=== PATIENT | male | born 1945 | race Caucasian/White ===

== ENCOUNTER → 2024-04-18 | Outpatient (CLI) | payer MEDICARE, BC, SELFPAY ==
[2024-04-18 08:59] LABS: Anion Gap 7 (7-16); BUN/Creatinine Ratio 22 Ratio (12-20); Blood Urea Nitrogen 24 mg/dL (9-23); Calcium 9.6 mg/dL (8.3-10.6); Carbon Dioxide 26.5 mMol/L (20.0-31.0); Chloride 103 mMol/L (98-107); Creatinine (Component) 1.1 mg/dL (0.6-1.3); Glucose 114 mg/dL (74-106); Osmolality,Calculated 276 (275-295); Potassium 4.3 mMol/L (3.4-5.1); Sodium 136 mMol/L (136-145); eGFR > 60 See Note
== END | disposition home or self-care (01) ==
LOC: COPL 07:23
PROVIDERS: PCP Family Medicine; Referring Provider Nurse Practitioner Family; Visit Provider Nurse Practitioner Family
DX: I10 Essential (primary) hypertension (principal)
CPT/HCPCS: 36415; 80048

== ENCOUNTER → 2024-06-20 | Outpatient (CLI) | payer MEDICARE, BC, SELFPAY ==
--- NOTE | 2024-06-20 | XR_ITS ---
Examination: Bilateral knees, standing AP single view Technique: Standing AP bilateral knees, standing single view Exam date and time: June 20, 2024 0745 hrs. Indications: Bilateral knee pain years, right knee surgery 1984 Findings: Significant osteopenia Advanced osteoarthritis medial lateral joint spaces right and left knee Especially severe narrowing, [id number] lateral joint spaces No fracture Impression: Severe bilateral osteoarthritis
== END | disposition home or self-care (01) ==
LOC: CDIM 07:35
PROVIDERS: PCP Family Medicine; Referring Provider Nurse Practitioner Family; Visit Provider Nurse Practitioner Family
DX: M17.0 Bilateral primary osteoarthritis of knee (principal)
CPT/HCPCS: 73565

== ENCOUNTER 2024-08-05 13:11 | Outpatient (AMB) | payer MEDICARE, BC, SELFPAY ==
--- NOTE | 2024-08-05 13:41 | PD.ORTHCLVIS ---
Vital signs 08/05/24 13:42 Height 1.78 m Height Method Stated Weight 72.291 kg Weight Measurement Method Standing Scale BMI 22.8 BP 118/74 Blood Pressure Source Automatic Cuff Blood Pressure Location Left Upper Arm Position Sitting Respiration 18 Pulse 67 Pulse Source Monitor Temp 98.0 F Temp Source Temporal Artery Scan Pulse Oximetry (%) 95 Oxygen Delivery Method Room Air Med/Allergies Allergies & Medications Allergies morphine Allergy (Intermediate, Verified 08/05/24 13:43) Hives doxycycline Allergy (Verified 08/05/24 13:43) Medication Reconciliation lisinopril 10 mg tablet 10 mg PO QDAY 12/09/23 [History Confirmed 08/05/24] prednisone 5 mg tablet 7.5 mg PO QDAY 12/09/23 [History Confirmed 08/05/24] ibuprofen 200 mg tablet 200 mg PO Q6H PRN 12/24/23 [History Confirmed 08/05/24] leflunomide 20 mg tablet 20 mg PO QDAY 08/05/24 [History Confirmed 08/05/24] Exam Exam Patient is in no acute distress and is cooperative with the examination today. Breathing is nonlabored. In no respiratory distress. Bilateral extremities were evaluated and demonstrates sensation intact to light touch. Palpable pedal pulses are present. No significant edema is present. Bilateral hips were examined. The patient has no pain with log roll of the hips. Internal rotation to 30 degrees and external rotation to 30 degrees is painless. Negative FADIR. The left knee was examined. The left knee is in varus alignment. Range of motion from 0-115 degrees. Knee is stable to varus and valgus as well as AP translation with <5mm. Patient has a negative McMurrays. There is no pain with patellofemoral compression and no crepitus noted. The knee is tender to palpation medially and laterally The right knee was also examined. The right knee is in varus alignment. Range of motion from 0-120 degrees. Knee is stable to varus and valgus as well as AP translation with <5mm. Patient has a negative McMurrays. There is no pain with patellofemoral compression and no crepitus noted. The knee is tender to palpation medially and laterally. X-rays demonstrate significant joint space narrowing bilaterally. There is complete obliteration of the medial and lateral joint space. There is extensive osteophyte Assessment and Plan Problem List (1) Ankylosing spondylitis: Status: Acute (2) Degenerative arthritis of knee, bilateral: Status: Acute Plan: Patient is a pleasant 78-year-old male with bilateral knee arthritis and closing spondylitis. He is exhausted conservative treatment. We discussed total knee replacement is a reasonable option. He does have a prior incision on the right that is clean dry and intact. This was done over 30 years ago. It is a long medial incision and I will try to reuse this if possible. Given his failure of conservative treatment. We will plan for a right total knee replacement. We will need stems on backup for his ankylosing spondylitis. For the left side, he would like a cortisone injection today Recommend knee cortisone injection as patient would like to proceed with conservative treatment at this time. The risks and benefits of the procedure were reviewed with the patient and patient gave verbal consent to continue with the procedure. Procedure: performed by Dr. Vega Using sterile technique the left knee was thoroughly prepped with alcohol, and approximately 1 cc of Kenalog 40 mg/mL and 4 cc of 1% lidocaine was injected without resistance into the medial tibial femoral joint space. The patient tolerated the procedure. The nature and purpose of the right total knee replacement, alternative method(s) of treatment, the material risks involved, and the possibility of complications were fully explained to the patient. The patient does NOT have any of the following contraindications to TKA: - Active infection of the knee joint, OR - Active systemic bacteremia, OR - Active skin infection or open wound at surgical site, OR - Neuropathic arthritis, OR - Severe, rapidly progressive neurological disease, OR - Severe medical condition that makes risks of surgery outweigh the potential benefit The patient was told the most common risks and complications associated with a total knee replacement include, but are not limited to: blood clots in the leg, fatal pulmonary embolism, dislocation of the prosthesis, intraoperative and postoperative fractures of the femur or tibia, infection, failure of the prosthesis or grafting materials, complications from anesthesia, reactions to blood transfusions, postoperative leg length inequality, instability of the knee replacement, nerve damage or injury, vascular injury, delayed wound healing, infection, other injury or even . In addition, there are risks associated with anesthesia given during this operation. Also, the patient was told that after undergoing a total knee replacement there may still be persistent pain or disability. The patient was informed that the success of this operation in part depends upon the mechanical devices which are going to be implanted and that these devices can fail or malfunction, and may need to be repaired or replaced and there are no guarantees as to the longevity of this device or its parts and that it or its parts could fail prematurely. The patient was also notified that during the course of surgery, there may be a need to use bone graft from donors, and that any bone graft used will be carefully screened for communicable diseases, including AIDS, hepatitis, Oscar-Creutzfeldt, or other diseases, but despite the screening procedures, there is a small chance that they could contract one of these diseases. Finally, the patient was asked to follow completely and fully with all advice and recommended treatments, and that recovery and ultimate outcome are affected by their compliance with recommended treatment. We discussed the risks, benefits and treatment alternatives, and the patient is interested in proceeding with surgery. We will try to set this up as expeditiously as possible. Advanced Care Planning Discussion Advance care planning discussed with:: patient Office Procedures GNS Level of Care Nursing/Assessment Patient Status: Initial/New Patient Nursing Assessment/Reassesment: Medication Reconciliation, Update PMH in EMR and Vital Signs Coordination of Care: Complex Care and Chronic Disease 1-5, Education Complex Pt/Fam, Consent,records obtained, informed consent, 1 Ins Authorization, Lab and Imaging orders, Results/Orders obtained and Staff clarify orders New Patient Charge New Patient Point Assignment: 1124 New Patient Point Charge: MARINE PIPEFITTER Level 4 ([id number]) Surgical Proc/IM SQ injection Major Surgical Procedure: Yes Medication Given Medication Given Medication Given: Yes Documented Dose Given: 4 Route: Infiitration Medication Given Medication Given Medication Given: Yes Documented Dose Given: 1 Route: Infiitration Office Meds Xylocaine 10 mg/mL (1 %) injection solution Performing Provider: Omari Vega MD Performing Location: [facility] Administered by: Omari Vega MD on 08/05/24 15:40 Dose Route Admin Location Dispensed Lot Number Expiration Date [facility] 20 mL Infiltration 20 mL [id number] triamcinolone acetonide 40 mg/mL suspension for injection Performing Provider: Omari Vega MD Performing Location: [facility] Administered by: Omari Vega MD on 08/05/24 15:40 Dose Route Admin Location Dispensed Lot Number Expiration Date [facility] [employer] 40 mg intra-articular LEFT 1 mL [id number] 09/25/25 7171-5752-22 [facility] [place] Intake Visit Data Collection New Patient or Established: New Patient (never been to [facility]) Reason for Visit:: BILATERAL KNEE PAIN Seen by Clinical Staff ONLY (RN/MA): No Executive Vice President Required: No PCP or OBGYN visit in last 3 months: Yes Hx Now: No Do You Feel Safe at Home: Yes Authorities Contacted: N/A Questionairres Past Medical History Past Medical History Have you ever been diagnosed with any of the following: Neurological Problems Seizures: No Cardiology Problems Congestive Heart Failure: No Hypertension: Yes Respiratory Problems Chronic Obstructive Pulmonary Disease (COPD): No Smoking: No Smoking Exposure: No Stomache/Intestinal Problems Diverticulitis: Yes Hiatal Hernia: Yes Genital/Urinary Problems Renal Disease: No Prostate Cancer: Yes Musculoskeletal Problems Arthritis: Yes Endocrine Problems Diabetes Mellitus Type 1: No Diabetes Mellitus Type 2: No Other Problems Blood Transfusions: No Blood Transfusion Reaction: No Anesthesia Reactions: No Cancer: Yes Subjective Visit Visit for: new patient and knee (BILATERAL) Immunization / Flu Flu Vaccine in the Last 12 Months: No Flu Vaccine Exclusion Criteria: Refused by Patient History of Present Illness Chief complaint: Bilateral knee pain Abraham is a pleasant 78-year-old male with bilateral knee pain and bilateral knee arthritis. He has a history of ankylosing spondylitis. The pain has been ongoing for multiple years. He has tried injections in the past. He is also tried anti-inflammatories and is on prednisone. Pain Pain level (0-10): 8 Pain duration: WITH MOVEMENT Pain location: inside (medial) and anterior Pain quality: sharp, dull and aching Pain timing: night, increases with activity and stairs Associated signs & symptoms: stiffness Ambulatory data Ambulatory device: none Treatments Number of previous injections: 1 Improvement with previous injections: No Improvement with PT: No Improvement with NSAIDS: no Review of Systems Review of Systems: All systems negative unless otherwise noted in HPI.
[2024-08-05 13:42] VITALS: BP 118/74; PULSE 67; RESP 18; TEMP 36.7; O2SAT 95; BMI 22.8
== END 2024-08-05 14:15 | disposition home or self-care (01) ==
LOC: HODSRG 13:11
PROVIDERS: PCP Family Medicine; Referring Provider Family Medicine; Supervising Provider Orthopaedic Surgery Adult Reconstructive Orthopaedic Surgery; Visit Provider Orthopaedic Surgery Adult Reconstructive Orthopaedic Surgery
DX: M45.9 Ankylosing spondylitis of unspecified sites in spine (principal); M17.0 Bilateral primary osteoarthritis of knee; I10 Essential (primary) hypertension
CPT/HCPCS: 20610; 99204; J3301; J3490; G0463

== ENCOUNTER → 2024-08-21 | Outpatient (CLI) | payer MEDICARE, BC, SELFPAY ==
[2024-08-21 08:29] LABS: Basophils # (Auto) 0.1 Thou/mm3 (0.0-0.2); Basophils % (Auto) 1 % (0-2.5); Eosinophils # (Auto) 0.5 Thou/mm3 (0.0-0.5); Eosinophils % (Auto) 4 % (0-10); Hematocrit 39.8 % (41.0-53.0); Hemoglobin 13.5 g/dL (13.5-16.0); Immature Granulocytes % (Auto) 1 % (0-0); Immature Granulocytes Auto 0.07 Thou/mm3 (0.00-0.00); Lymphocytes # (Auto) 2.5 Thou/mm3 (1.0-4.8); Lymphocytes % (Auto) 22 % (10-50); Mean Corpuscular HGB Conc 33.9 g/dl (31.0-37.0); Mean Corpuscular Hemoglobin 29.9 pg (25.0-35.0); Mean Corpuscular Volume 88 fL (80-100); Monocytes # (Auto) 1.3 Thou/mm3 (0.0-0.8); Monocytes % (Auto) 11 % (0-12); Neutrophils # (Auto) 6.9 Thou/mm3 (1.8-7.7); Neutrophils % (Auto) 61 % (37-80); Nucleated Red Blood Cell % 0 /100 WBC (0); Platelet Count 246 Thou/mm3 (140-440); RDW Standard Deviation 44.3 fL (35.1-43.9); Red Blood Count 4.51 Miln/mm3 (4.50-5.90); White Blood Count 11.2 Thou/mm3 (3.8-10.6)
[2024-08-21 08:51] LABS: Alanine Aminotransferase 16 U/L (10-49); Albumin/Globulin Ratio 1.7 (1.2-2.2); Alkaline Phosphatase 55 U/L (46-116); Anion Gap 8 (7-16); Aspartate Amino Transferase 24 U/L (0-34); BUN/Creatinine Ratio 20 Ratio (12-20); Bilirubin,Total 0.4 mg/dL (0.3-1.2); Blood Urea Nitrogen 24 mg/dL (9-23); C-Reactive Protein 0.7 mg/dL (0.0-0.9); Calcium 9.5 mg/dL (8.3-10.6); Calcium (Corrected) 9.5 mg/dL (8.5-10.1); Chloride 104 mMol/L (98-107); Creatinine (Component) 1.2 mg/dL (0.6-1.3); Globulin 2.4 gm/dL (2.3-3.5); Glucose 80 mg/dL (74-106); Osmolality,Calculated 282 (275-295); Potassium 4.2 mMol/L (3.4-5.1); Sodium 140 mMol/L (136-145); Total Protein 6.4 gm/dL (5.7-8.2); eGFR > 60 See Note
[2024-08-21 08:56] LABS: Sed Rate (ESR) 15 mm/hr (0-20)
== END | disposition home or self-care (01) ==
LOC: COPL 07:33
PROVIDERS: PCP Family Medicine; Referring Provider Nurse Practitioner Family; Visit Provider Nurse Practitioner Family
DX: M45.0 Ankylosing spondylitis of multiple sites in spine (principal); M85.88 Other specified disorders of bone density and structure, other site
CPT/HCPCS: 36415; 80053; 85025; 85652; 86140

== ENCOUNTER → 2024-09-15 | Outpatient (CLI) | payer MEDICARE, BC, SELFPAY | END | disposition home or self-care (01) | PROVIDERS: Referring Provider Nurse Practitioner Family; Visit Provider Nurse Practitioner Family | DX: Z53.8 Procedure and treatment not carried out for other reasons (principal) ==

== ENCOUNTER 2024-09-25 09:30 | Outpatient (AMB) | payer MEDICARE, BC, SELFPAY ==
--- NOTE | 2024-09-25 10:05 | PD.ORTHCLVIS ---
Vital signs 09/25/24 10:06 Height 1.78 m Height Method Stated Weight 72.235 kg Weight Measurement Method Standing Scale BMI 22.8 BP 115/70 Blood Pressure Source Automatic Cuff Blood Pressure Location Left Upper Arm Position Sitting Respiration 18 Pulse 77 Pulse Source Monitor Temp 98.1 F Temp Source Temporal Artery Scan Pulse Oximetry (%) 95 Oxygen Delivery Method Room Air Med/Allergies Allergies & Medications Allergies morphine Allergy (Intermediate, Verified 09/25/24 10:08) Hives doxycycline Allergy (Verified 09/25/24 10:08) Medication Reconciliation lisinopril 10 mg tablet 10 mg PO QDAY 12/09/23 [History Confirmed 09/25/24] prednisone 5 mg tablet 7.5 mg PO QDAY 12/09/23 [History Confirmed 09/25/24] ibuprofen 200 mg tablet 200 mg PO Q6H PRN 12/24/23 [History Confirmed 09/25/24] leflunomide 20 mg tablet 20 mg PO QDAY 08/05/24 [History Confirmed 09/25/24] Exam Exam Patient is in no acute distress and is cooperative with the examination today. Breathing is nonlabored. In no respiratory distress. Bilateral extremities were evaluated and demonstrates sensation intact to light touch. Palpable pedal pulses are present. No significant edema is present. Bilateral hips were examined. The patient has no pain with log roll of the hips. Internal rotation to 30 degrees and external rotation to 30 degrees is painless. Negative FADIR. The left knee was examined. The left knee is in varus alignment. Range of motion from 0-115 degrees. Knee is stable to varus and valgus as well as AP translation with <5mm. Patient has a negative McMurrays. There is no pain with patellofemoral compression and no crepitus noted. The knee is tender to palpation medially and laterally The right knee was also examined. The right knee is in varus alignment. Range of motion from 0-120 degrees. Knee is stable to varus and valgus as well as AP translation with <5mm. Patient has a negative McMurrays. There is no pain with patellofemoral compression and no crepitus noted. The knee is tender to palpation medially and laterally. X-rays demonstrate significant joint space narrowing bilaterally. There is complete obliteration of the medial and lateral joint space. There is extensive osteophyte Assessment and Plan Problem List (1) Ankylosing spondylitis: Status: Acute (2) Degenerative arthritis of knee, bilateral: Status: Acute Plan: Patient is a pleasant 78-year-old male with bilateral knee arthritis and closing spondylitis. He is exhausted conservative treatment. We discussed total knee replacement is a reasonable option. He does have a prior incision on the right that is clean dry and intact. This was done over 30 years ago. It is a long medial incision and I will try to reuse this if possible. Given his failure of conservative treatment. We will plan for a right total knee replacement. We will need stems on backup for his ankylosing spondylitis. The nature and purpose of the right total knee replacement, alternative method(s) of treatment, the material risks involved, and the possibility of complications were fully explained to the patient. The patient does NOT have any of the following contraindications to TKA: - Active infection of the knee joint, OR - Active systemic bacteremia, OR - Active skin infection or open wound at surgical site, OR - Neuropathic arthritis, OR - Severe, rapidly progressive neurological disease, OR - Severe medical condition that makes risks of surgery outweigh the potential benefit The patient was told the most common risks and complications associated with a total knee replacement include, but are not limited to: blood clots in the leg, fatal pulmonary embolism, dislocation of the prosthesis, intraoperative and postoperative fractures of the femur or tibia, infection, failure of the prosthesis or grafting materials, complications from anesthesia, reactions to blood transfusions, postoperative leg length inequality, instability of the knee replacement, nerve damage or injury, vascular injury, delayed wound healing, infection, other injury or even . In addition, there are risks associated with anesthesia given during this operation. Also, the patient was told that after undergoing a total knee replacement there may still be persistent pain or disability. The patient was informed that the success of this operation in part depends upon the mechanical devices which are going to be implanted and that these devices can fail or malfunction, and may need to be repaired or replaced and there are no guarantees as to the longevity of this device or its parts and that it or its parts could fail prematurely. The patient was also notified that during the course of surgery, there may be a need to use bone graft from donors, and that any bone graft used will be carefully screened for communicable diseases, including AIDS, hepatitis, Oscar-Creutzfeldt, or other diseases, but despite the screening procedures, there is a small chance that they could contract one of these diseases. Finally, the patient was asked to follow completely and fully with all advice and recommended treatments, and that recovery and ultimate outcome are affected by their compliance with recommended treatment. We discussed the risks, benefits and treatment alternatives, and the patient is interested in proceeding with surgery. We will try to set this up as expeditiously as possible. Advanced Care Planning Discussion Advance care planning discussed with:: patient Office Procedures GNS Level of Care Nursing/Assessment Patient Status: Established Patient Nursing Assessment/Reassesment: Medication Reconciliation, Update PMH in EMR and Vital Signs Coordination of Care: Complex Care and Chronic Disease 1-5, Education Complex Pt/Fam, Consent,records obtained, informed consent, Results/Orders obtained and Staff clarify orders Established Patient Charge Established Patient Point Assignment: 95 Established Patient Point Charge: EP Level 3 (80-115) MS Intake Visit Data Collection New Patient or Established: Established Patient (seen at [facility] within 3 years) Reason for Visit:: PRE OP R TKA PCP or OBGYN visit in last 3 months: Yes Hx Now: No Do You Feel Safe at Home: Yes Authorities Contacted: N/A Questionairres Past Medical History Past Medical History Have you ever been diagnosed with any of the following: Neurological Problems Seizures: No Cardiology Problems Congestive Heart Failure: No Hypertension: Yes Respiratory Problems Chronic Obstructive Pulmonary Disease (COPD): No Smoking: No Smoking Exposure: No Stomache/Intestinal Problems Diverticulitis: Yes Hiatal Hernia: Yes Genital/Urinary Problems Renal Disease: No Prostate Cancer: Yes Musculoskeletal Problems Arthritis: Yes Endocrine Problems Diabetes Mellitus Type 1: No Diabetes Mellitus Type 2: No Other Problems Blood Transfusions: No Blood Transfusion Reaction: No Anesthesia Reactions: No Cancer: Yes Subjective Visit Visit for: follow up visit and knee Immunization / Flu Flu Vaccine in the Last 12 Months: No Flu Vaccine Exclusion Criteria: No Exclusion Criteria History of Present Illness Chief complaint: Bilateral knee pain Abraham is a pleasant 78-year-old male with bilateral knee pain and bilateral knee arthritis. He has a history of ankylosing spondylitis. The pain has been ongoing for multiple years. He has tried injections in the past. He has also tried anti-inflammatories and is on prednisone. Pain Pain level (0-10): 6 Pain duration: ALL DAY Pain location: inside (medial) and anterior Pain quality: sharp and dull Pain timing: increases with activity Associated signs & symptoms: weakness Ambulatory data Ambulatory device: none Treatments Number of previous injections: 1 Improvement with previous injections: No Improvement with PT: No Improvement with NSAIDS: no Review of Systems Review of Systems: All systems negative unless otherwise noted in HPI.
[2024-09-25 10:06] VITALS: BP 115/70; PULSE 77; RESP 18; TEMP 36.7; O2SAT 95; BMI 22.8
== END 2024-09-25 10:28 | disposition home or self-care (01) ==
LOC: HODSRG 09:30
PROVIDERS: Supervising Provider Orthopaedic Surgery Adult Reconstructive Orthopaedic Surgery; Visit Provider Orthopaedic Surgery Adult Reconstructive Orthopaedic Surgery
DX: M45.9 Ankylosing spondylitis of unspecified sites in spine (principal); M17.0 Bilateral primary osteoarthritis of knee; M25.562 Pain in left knee; M25.561 Pain in right knee; I10 Essential (primary) hypertension
CPT/HCPCS: 99213; G0463

== ENCOUNTER → 2024-09-30 | Outpatient (CLI) | payer MEDICARE, BC, SELFPAY ==
--- NOTE | 2024-09-30 12:00 | XR_ITS ---
Examination: Bone densitometry Date and time of exam:September 30, 2024 1235 hours INDICATIONS: 78-year-old male with diagnosis age related osteoporosis, prednisone administration 3 years, personal history osteopenia Technique: Lumbar spine and hip total bone mineralization values of an calculated. Peak reference and age match control results have been displayed. Findings: Lumbar spine total bone mineralization is1.200 gm/cm2. This is 1.0 standard deviations above peak reference. This is 2.1 standard deviations above age-matched controls. Hip total bone mineralization is 0.932 gm/cm2 This is 0.7 standard deviations below peak reference. This is 0.3 standard deviations above age-matched controls Impression: There is normal mineralization based on lumbar spine measurements. There is osteopenia based on hip measurements Lumbar mineralization is increase 0.2% compared with December 27, 2018 Hip mineralization is increased 22.5% compared with December 27, 2018
== END | disposition home or self-care (01) ==
LOC: CDIM 11:48
PROVIDERS: Referring Provider Internal Medicine Rheumatology; Visit Provider Internal Medicine Rheumatology
DX: Z13.820 Encounter for screening for osteoporosis (principal); M85.88 Other specified disorders of bone density and structure, other site
CPT/HCPCS: 77080

== ENCOUNTER → 2024-10-02 | Outpatient (CLI) | payer MEDICARE, BC, SELFPAY ==
--- NOTE | 2024-10-02 12:00 | XR_ITS ---
Examination: CT right lower extremity, without contrast. 2-D sagittal reconstructions. 2-D coronal reconstructions. 3-D reconstructions. Date and time of exam:September 2024 1226 hours INDICATIONS: Diagnosis unilateral right knee osteoarthritis, knee pain 5 years CTDI: vol (mGy):8.4 DLP: (mGycm):674 Technique: Multiple 1.25 mm axial sections of the right lower extremity without intravenous contrast have been obtained. 2-D sagittal and coronal reconstructions have been obtained. 3-D reconstructions have been obtained. Low dose protocols were performed. One or more of the following dose reduction techniques were used; automated exposure control, adjustment of the mA and/or KV according to patient size, use of iterative reconstruction technique. Findings: Prominent osteopenia Moderate osteoarthritis right hip joint, no hip fracture or dislocation Severe tricompartment osteoarthritis right knee No fractures IMPRESSION: Severe tricompartment osteoarthritis right knee
== END | disposition home or self-care (01) ==
PROVIDERS: Referring Provider Orthopaedic Surgery Adult Reconstructive Orthopaedic Surgery; Visit Provider Orthopaedic Surgery Adult Reconstructive Orthopaedic Surgery
DX: M17.11 Unilateral primary osteoarthritis, right knee (principal)
CPT/HCPCS: 73700

== ENCOUNTER 2024-10-13 05:45 | Day surgery (SDC) | payer MEDICARE, BC, SELFPAY ==
[2024-10-09 09:34] VITALS: BMI 24.3
[2024-10-09 10:27] LABS: Basophils # (Auto) 0.1 Thou/mm3 (0.0-0.2); Basophils % (Auto) 1 % (0-2.5); Eosinophils # (Auto) 0.4 Thou/mm3 (0.0-0.5); Eosinophils % (Auto) 3 % (0-10); Hematocrit 40.4 % (41.0-53.0); Hemoglobin 13.2 g/dL (13.5-16.0); Immature Granulocytes % (Auto) 1 % (0-0); Immature Granulocytes Auto 0.13 Thou/mm3 (0.00-0.00); Lymphocytes % (Auto) 16 % (10-50); Mean Corpuscular HGB Conc 32.7 g/dl (31.0-37.0); Mean Corpuscular Hemoglobin 29.6 pg (25.0-35.0); Mean Corpuscular Volume 91 fL (80-100); Monocytes % (Auto) 7 % (0-12); Neutrophils # (Auto) 9.3 Thou/mm3 (1.8-7.7); Neutrophils % (Auto) 72 % (37-80); Nucleated Red Blood Cell % 0 /100 WBC (0); Platelet Count 356 Thou/mm3 (140-440); RDW Standard Deviation 47.7 fL (35.1-43.9); Red Blood Count 4.46 Miln/mm3 (4.50-5.90); White Blood Count 12.8 Thou/mm3 (3.8-10.6)
[2024-10-09 10:42] LABS: Alanine Aminotransferase 14 U/L (10-49); Albumin, Serum 4.3 gm/dL (3.4-4.8); Albumin/Globulin Ratio 1.7 (1.2-2.2); Alkaline Phosphatase 62 U/L (46-116); Anion Gap 5 (7-16); Aspartate Amino Transferase 23 U/L (0-34); BUN/Creatinine Ratio 25 Ratio (12-20); Bilirubin,Total 0.2 mg/dL (0.3-1.2); Blood Urea Nitrogen 25 mg/dL (9-23); Calcium 9.1 mg/dL (8.3-10.6); Calcium (Corrected) 9.1 mg/dL (8.5-10.1); Chloride 105 mMol/L (98-107); Estimated Creatinine Clearance 59.9 mL/min (>60); Globulin 2.6 gm/dL (2.3-3.5); Glucose 106 mg/dL (74-106); Osmolality,Calculated 278 (275-295); Potassium 4.4 mMol/L (3.4-5.1); Sodium 137 mMol/L (136-145); Total Protein 6.9 gm/dL (5.7-8.2); eGFR > 60 See Note
[2024-10-09 10:50] LABS: INR 1.1 (0.9-1.3); Partial Thromboplastin Time 25.5 Seconds (22.0-36.0); Prothrombin Time 11.5 Seconds (9.0-12.2)
--- NOTE | 2024-10-09 14:13 | SUR.PREOP ---
WBC 12.8, Dr Vega notified and ok to proceed.
[2024-10-13] VITALS (18 sets, daily range): BP systolic 99–137; BP diastolic 49–79; PULSE 61–79; RESP 12–20; TEMP 36.4–36.6; O2SAT 93–100; BMI 24.3
[2024-10-13] MEDS: ACETAMINOPHEN 325 MG TABLET 650 MG PO (06:57)
[2024-10-13] MEDS: MELOXICAM 7.5 MG TABLET PO (06:58)
[2024-10-13] MEDS: PREGABALIN 75 MG CAPSULE PO (06:58)
[2024-10-13] MEDS: RINGERS LACTATED 1000 ML 1,000 ML 20 ML IV (07:00)
--- NOTE | 2024-10-13 07:29 | SUR.PREOP ---
Patient expressed gratitude for prayer before their procedure.
--- NOTE | 2024-10-13 09:39 | PD.SUROPNT ---
Date of Procedure 10/13/24 Pre Op Diagnosis right knee osteoarthritis Post Op Diagnosis right knee osteoarthritis Procedure right total knee replacement Findings full thickness cartilage loss and osteophytes Procedure Description Indication: The patient is a 78 year old who has a long history of right knee pain. X-rays show degenerative arthritis involving the knee. Over the past several years the patient has had increasing pain, progressive limitation in function. He has failed conservative measures including activity modification, physical therapy, injections, anti-inflammatories, and assistive devices. After a lengthy discussion of the risks and benefits, the patient presents now for total knee replacement. The nature and purpose of the total knee replacement, alternative method(s) of treatment, the material risks involved, and the possibility of complications were fully explained to the patient. The patient was told the most common risks and complications associated with a total knee replacement include, but are not limited to blood clots in the leg, fatal pulmonary embolism, dislocation of the prosthesis, intraoperative and postoperative fractures of the femur or tibia, infection, failure of the prosthesis or grafting materials, complications from anesthesia, reactions to blood transfusions, postoperative leg length inequality, instability of the knee replacement, nerve damage or injury, vascular injury, delayed wound healing, infections, other injury or even . In addition, there are risks associated with anesthesia given during this operation, temporary or permanent numbness on the skin lateral to the incision can be a complication unique to total knee surgery, and kneeling can be painful after knee replacement surgery. Also, the patient was told that after undergoing a total knee replacement there may still be pain or disability. We discussed with the patient that we will be using a robot-assisted technology. We discussed that there is a possibility of converting to manual instrumentation. The patient was informed that the success of this operation in part depends upon the mechanical devices which are going to be implanted and that these devices can fail or malfunction, and may need to be repaired or replaced and there are no guarantees as to the longevity of this device or its part and that it or its parts could fail prematurely. Finally, the patient was asked to follow completely and fully with all advice and recommended treatments, and that recovery and ultimate outcome are affected by their compliance with recommended treatment. Surgical technique: Patient was marked and consented in the pre-operative area. The patient was brought to the operating room and placed on the operating table in a supine position. Prior to positioning, a timeout procedure was performed between the surgeon, the anesthesiologist, and the nursing staff where the patient and the operative side were identified and confirmed. After adequate general anesthetic was obtained, the right lower extremity was prepped and draped in the usual sterile fashion. A weight based dose of Cefazolin were administered within 1 hour prior to incision. The robot was preregistered and calirated before the incision. The extremity was exsanguinated with an esmarch badge and tourniquet inflated to 250mmHg. A midline incision was made. A median parapatellar arthrotomy was made. The patella was subluxed laterally. A medial release was performed to expose the medial tibia. His femoral and tibial pins were placed through an intra incisional manner for both cases. Every effort was made to ensure that the distalmost aspect of the pin was hung in the second cortex. The arrays were then tightened several times to ensure that it was fixed for the remainder of the case. Both femoral and tibial checkpoints were then placed. We then went through the registration process of the bone. We then assessed the knee deformity and attempted to correct it. We also used the robot to aid in judging laxity in both extension and flexion. Final based on laxity and alignment we changed the preoperative assessment to obtain proper proper implant positioning and to correct deformity. Attention was then placed to the tibia. We made a tibial cut using the robot ensuring that both the MCL and the patella tendon were protected with retractors. We then went to the femur and made the posterior cut followed by the anterior cut and the anterior chamfer. The bone was then removed and we made a distal femur cut and a posterior chamfer cut. We verified all cuts. A trial reduction was performed with a size 5 femoral component and a size 5 keeled tibial component. The patella was cut and sized to a [33]. The patella tracked centrally, and no lateral retinacular release was necessary. The trial implants were removed. The arrays, pins, and checkpoints were all removed. We performed a verification that all pins were removed. The cut bone surfaces were lavaged. A size 5 right femoral component, a size 5 keeled tibial component were impacted into position using 2 bags of palacos. A trial insert was placed and a size 36 patella were impacted into position. The knee was placed in extension until the cement hardened. The knee was felt to be well balanced in the sagittal and coronal plane. The final 5x10] mm cruciate-substituting articular insert was impacted into the tibial tray. The knee was brought out to full extension, flexed up to 120 degrees. It was stable to varus and valgus stress and appropriately balanced in flexion and extension. The wounds were copiously irrigated following deflation of tourniquet. The medial retinaculum was reapproximated with #1 vicryl and quill. The subcutaneous tissues were closed with 0 and 2-0 interrupted Vicryl. The skin was closed with 3-0 Monofilament V loc suture. A sterile dressing was applied. The patient was transferred to a bed and brought to recovery in stable condition. The patient tolerated the procedure well. There were no intraoperative complications. Sponge and needle counts were correct times 2. As the attending surgeon, I attest I was present and performed the entire operation. Grafts/Implants Size 5 CR Femur Size 5 Tibia 10mm poly CS 36mm patella 2 bags of palacos Anesthesia GETA Implants calvin Pathology / specimen None Pathology comment: none Estimated Blood Loss 150 Surgeon Omari Vega MD Surgical Staff Operation Date: 10/13/24 07:30 Case Staff Anesthesiologist: Yuriy Gore RNservice sprinkler helper: Reva Emery
--- NOTE | 2024-10-13 09:41 | XR_ITS ---
Examination: Right knee 2 views Technique one AP lateral right knee 2 views Date and time: October 13, 2024 1025 hours INDICATIONS: Postop knee replacement today. FINDINGS: Prominent osteopenia Total right knee arthroplasty. Satisfactory alignment. No fracture IMPRESSION: Total right knee arthroplasty with satisfactory alignment
--- NOTE | 2024-10-13 10:12 | SUR.PHASEI ---
1012: Pt. AAOx4, vitals stable, breathing unlabored, no complaint of pain or nausea, dressing to right knee CDI, no active bleed noted, pt. able to wiggle bilateral feet, cap refill to bilateral toes less than 3 seconds, bilateral dorsalis pedis pulses strong and regular, report received from Shen WAGGONER and MD Gore.
[2024-10-13] MEDS: HYDROmorphone INJ 2 MG/ML VIAL 0.5 MG IVP (11:10)
--- NOTE | 2024-10-13 12:17 | SUR.PHASEII ---
Pt. attempted physical therapy, pt. gait unstable, pt. stated he was dizzy. Plan to let the pt. rest a little and reattempt PT later.
--- NOTE | 2024-10-13 12:45 | SUR.PHASEII ---
pt drowsy but arouses to voice, breathing unlabored, dressing to right lower extremity clean, dry, and intact, report from Joanne WAGGONER
--- NOTE | 2024-10-13 13:12 | SUR.PHASEII ---
report to Joanne WAGGONER
[2024-10-13] MEDS: ACETAMINOPHEN IVPB 1,000 MG/100 ML VIAL 250 MG IV (13:39)
--- NOTE | 2024-10-13 14:20 | SUR.PHASEII ---
1420: Pt. AAOx4, vitals stable, breathing unlabored, no complaint of pain or nausea, dressing to right knee CDI, no active bleed noted, pt. able to wiggle bilateral feet, cap refill to bilateral toes less than 3 seconds, bilateral dorsalis pedis pulses strong and regular, Pt. ambulated with PT, pt. tolerated well, pt. tolerated sips of water well, pt. ambulated to wheelchair with steady gait and no assist, no complications. Gave discharge instructions to the pt. and his ride, both verbalized understanding and had no further questions. Pt. left with all personal belongings.
--- NOTE | 2024-10-16 15:02 | PD.ANESPROG ---
Documentation for date of: 10/16/24 POST ANESTHESIA NOTE: Patient had GETA and R adductor canal block for R TKA on 10/13/24. Intra-op, spinal was attempted but aborted after multiple attempts failed to reach his intrathecal space. I just called and spoke with him on the phone and he denied any problems from anesthesia except he mentioned some sore throat and being sleepy post op. He reported he is doing well otherwise, already doing PT at home and has follow up scheduled with the surgeon. Yuriy Gore MD Anesthesia Progress Note Progress Note Most recent Vital Signs: Last Vital Signs Temp 97.8 F 10/13/24 14:10 Pulse 72 10/13/24 14:10 Resp 18 10/13/24 14:10 BP 122/79 10/13/24 14:10 Pulse Ox 96 10/13/24 14:10 O2 Flow Rate 3 10/13/24 13:00
== END 2024-10-13 14:20 | disposition home or self-care (01) ==
PROVIDERS: Anesthesiology; PCP Family Medicine; Referring Provider Orthopaedic Surgery Adult Reconstructive Orthopaedic Surgery; Visit Provider Orthopaedic Surgery Adult Reconstructive Orthopaedic Surgery
PROC: (CPT 27447; principal; 2024-10-13 07:30)
DX: M17.11 Unilateral primary osteoarthritis, right knee (principal); M25.761 Osteophyte, right knee
CPT/HCPCS: 27447; 20985; 36415; 73560; 80053; 85025; 85610; 85730; 97162; A4217; C1713; C1776; J0131; J0690; J1100; J1171; J2250; J2371; J2704; J2710; J2795; J3010; J3490; J7030; J7120; J7999; A4648; A4649; A9270; J1596; J1805

== ENCOUNTER 2024-10-31 12:57 | Outpatient (AMB) | payer MEDICARE, BC, SELFPAY ==
[2024-10-31 13:13] VITALS: BP 108/68; PULSE 82; RESP 19; TEMP 36.7; O2SAT 94; BMI 24.1
--- NOTE | 2024-10-31 13:13 | PD.ORTHCLVIS ---
Vital signs 10/31/24 13:13 Height 1.7 m Height Method Stated Weight 69.882 kg Weight Measurement Method Standing Scale BMI 24.1 BP 108/68 Blood Pressure Source Automatic Cuff Blood Pressure Location Left Upper Arm Position Sitting Respiration 19 Pulse 82 Pulse Source Monitor Temp 98.0 F Temp Source Temporal Artery Scan Pulse Oximetry (%) 94 L Oxygen Delivery Method Room Air Med/Allergies Allergies & Medications Allergies morphine Allergy (Intermediate, Verified 10/31/24 13:14) Hives doxycycline Allergy (Verified 10/31/24 13:14) Medication Reconciliation lisinopril 10 mg tablet 10 mg PO QDAY 12/09/23 [History Confirmed 10/31/24] prednisone 5 mg tablet 5 mg PO QDAY 12/09/23 [History Confirmed 10/31/24] bee pollen 550 mg capsule 550 mg PO DAILY 10/09/24 [History Confirmed 10/31/24] calcium 600 mg (as carbonate)-vitamin D3 5 mcg (200 unit) tablet (Calcium 600 + D(3)) 1 tab PO QDAY 10/09/24 [History Confirmed 10/31/24] coenzyme Q10 30 mg capsule (Co Q-10) 30 mg PO QDAY 10/09/24 [History Confirmed 10/31/24] garlic 5,000 mcg tablet 5 mg PO QDAY 10/09/24 [History Confirmed 10/31/24] hydrocodone 5 mg-acetaminophen 325 mg tablet 1 tab PO Q12H PRN pain 10/09/24 [History Confirmed 10/31/24] ibuprofen 400 mg tablet (IBU) 400 mg PO Q8H PRN pain 10/09/24 [History Confirmed 10/31/24] acetaminophen 500 mg tablet (Acetaminophen Extra Strength) 1,000 mg (2 x 500 mg) PO Q6H PRN pain #90 tabs 10/13/24 [Rx Confirmed 10/31/24] aspirin 81 mg tablet,delayed release 81 mg PO BID #60 tabs 10/13/24 [Rx Confirmed 10/31/24] cefadroxil 500 mg capsule 500 mg PO BID #14 caps 10/13/24 [Rx Confirmed 10/31/24] gabapentin 300 mg capsule 300 mg PO .qhs #30 caps 10/13/24 [Rx Confirmed 10/31/24] oxycodone 5 mg tablet 5 mg PO Q6H PRN pain #28 tabs 10/13/24 [Rx Confirmed 10/31/24] sennosides 8.6 mg-docusate sodium 50 mg tablet (Senna-S) 1 tab-cap PO QDAY #30 tabs 10/13/24 [Rx Confirmed 10/31/24] Exam Exam Patient is in no acute distress and is cooperative with the examination today. Breathing is nonlabored. In no respiratory distress. Bilateral extremities were evaluated and demonstrates sensation intact to light touch. Palpable pedal pulses are present. No significant edema is present. Bilateral hips were examined. The patient has no pain with log roll of the hips. Internal rotation to 30 degrees and external rotation to 30 degrees is painless. Negative FADIR. The left knee was examined. The left knee is in varus alignment. Range of motion from 0-115 degrees. Knee is stable to varus and valgus as well as AP translation with <5mm. Patient has a negative McMurrays. There is no pain with patellofemoral compression and no crepitus noted. The knee is tender to palpation medially and laterally Right knee incision is clean dry intact. Range of motion 0-100 Assessment and Plan Problem List (1) Ankylosing spondylitis: Status: Acute (2) Degenerative arthritis of knee, bilateral: Status: Acute Plan: Patient is a pleasant 78-year-old male with bilateral knee arthritis. He is status post total knee replacement and is doing well on the right. We will start him on physical therapy. Advanced Care Planning Discussion Advance care planning discussed with:: patient and spouse Office Procedures GNS Level of Care Nursing/Assessment Patient Status: Established Patient Nursing Assessment/Reassesment: Medication Reconciliation, Update PMH in EMR and Vital Signs Coordination of Care: Complex Care and Chronic Disease 1-5, Education Complex Pt/Fam, Consent,records obtained, informed consent, Results/Orders obtained and Staff clarify orders Established Patient Charge Established Patient Point Assignment: 95 Established Patient Point Charge: EP Level 3 (80-115) MA Intake Visit Data Collection New Patient or Established: Established Patient (seen at [facility] within 3 years) Reason for Visit:: 2 WEEK POST OP R TKA Seen by Clinical Staff ONLY (RN/MA): No PCP or OBGYN visit in last 3 months: Yes Hx Now: No Do You Feel Safe at Home: Yes Authorities Contacted: N/A Questionairres Past Medical History Past Medical History Have you ever been diagnosed with any of the following: Neurological Problems Seizures: No Cardiology Problems Congestive Heart Failure: No Hypertension: Yes Respiratory Problems Chronic Obstructive Pulmonary Disease (COPD): No Smoking: No Smoking Exposure: No Stomache/Intestinal Problems Hepatitis: No Diverticulitis: Yes Hiatal Hernia: Yes Genital/Urinary Problems Renal Disease: No Prostate Cancer: Yes Musculoskeletal Problems Arthritis: Yes Endocrine Problems Diabetes Mellitus Type 1: No Diabetes Mellitus Type 2: No Other Problems Hospitalization: Yes (hernia surgery) Shingles: Yes Blood Transfusions: No Blood Transfusion Reaction: No Anesthesia Reactions: No Chicken Pox: Yes Measles: Yes Mumps: Yes Cancer: Yes Surgical History Total Knee Replacement: Yes (RIGHT 2024) Subjective Visit Visit for: follow up visit, post op #1 and knee Immunization / Flu Flu Vaccine in the Last 12 Months: No Flu Vaccine Exclusion Criteria: No Exclusion Criteria History of Present Illness Chief complaint: Bilateral knee pain Abraham is a pleasant 78-year-old male with bilateral knee pain and bilateral knee arthritis. He has a history of ankylosing spondylitis. He is status post right total knee replacement and is doing well Pain Pain level (0-10): 0 Pain duration: ALL DAY Pain location: inside (medial) and anterior Pain quality: sharp and dull Pain timing: increases with activity Associated signs & symptoms: none Ambulatory data Ambulatory device: walker Treatments Number of previous injections: 1 Improvement with previous injections: No Improvement with PT: No Improvement with NSAIDS: no Review of Systems Review of Systems: All systems negative unless otherwise noted in HPI.
== END 2024-10-31 13:19 | disposition home or self-care (01) ==
LOC: HODSRG 12:57
PROVIDERS: PCP Family Medicine; Referring Provider Family Medicine; Supervising Provider Orthopaedic Surgery Adult Reconstructive Orthopaedic Surgery; Visit Provider Orthopaedic Surgery Adult Reconstructive Orthopaedic Surgery
DX: M45.9 Ankylosing spondylitis of unspecified sites in spine (principal); M17.0 Bilateral primary osteoarthritis of knee; Z96.651 Presence of right artificial knee joint; M25.562 Pain in left knee; M25.561 Pain in right knee; I10 Essential (primary) hypertension
CPT/HCPCS: 99213; G0463

== ENCOUNTER 2024-11-24 13:13 | Outpatient (RCR) | payer MEDICARE, BC, SELFPAY ==
--- NOTE | 2024-11-24 13:41 | PTNOTE_ITS ---
PT OP Initial Eval Patient Information Outpatient Physical Therapy Treatment Date: 11/24/24 Visit Reasons: s/p right TKA Medical Diagnosis: s/p R TKA Treatment Dx #1: R knee pain Treatment Dx #2: Dec ROM R knee Start of Care: 11/24/24 Date of Onset: 10/13/24 DOS Smoking Status Smoking Status: Never smoker Initial Assessment Subjective: Pt is 79 yr old male s/p R TKA presents ambulating with cane. He reports he is bending the knee and walking limited distances. 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 PLOF: pt was ambulating without ass istive device. PMH: HTN, prostate cancer, Pt goal: to walk further to go grocery shopping Objective: R knee AROM: ? Flexion: 90 deg ? Extension: -15 deg ? SLR: ? 35 deg ? Strength: ? Quads and hamstrings 4-/5 ? Antalgic gait pattern with decreased WB tolerance on R LE Assessment: Pt presentation consistent with post op R TKA with decreased ROM, strength ? and WB tolerance. Pt lacks a few degrees of knee extension and flexion is limited by ? myofascial limitations and pain.? Pt requires skilled therapy to improve ROM ? and strength and has good rehab potential.? Eval followed by HEP with printout. Short Term and Project Manager/Design Manager Goals 1. Independent with HEP 2. Improved knee ROM to full extension to 105 deg flexion 3. Improved quad and hamstring strength to 4+/5 4. Improved ambulatory tolerance to community distances with symmetrical ?? gait pattern.??? Treatment Plan ? 1. Manual therapy ? 2. Therex ? 3. Modalities as indicated, moist heat, ice, estim Frequency and Duration: 2-3x a week for 18 visits Certification Dates: 11/24/24 to 02/22/25 Procedure Charges OP PT Eval Mod Complex 30 minutes: Yes
== END 2024-11-24 23:59 | disposition home or self-care (01) ==
LOC: CPTX 13:13
PROVIDERS: PCP Orthopaedic Surgery Adult Reconstructive Orthopaedic Surgery; Referring Provider Orthopaedic Surgery Adult Reconstructive Orthopaedic Surgery; Visit Provider Orthopaedic Surgery Adult Reconstructive Orthopaedic Surgery
DX: M25.561 Pain in right knee (principal); Z96.651 Presence of right artificial knee joint; I10 Essential (primary) hypertension
CPT/HCPCS: 97162

== ENCOUNTER 2024-11-25 10:46 | Outpatient (AMB) | payer MEDICARE, BC, SELFPAY ==
[2024-11-25 11:25] VITALS: BP 103/65; PULSE 76; RESP 19; TEMP 36.8; O2SAT 94; BMI 24.2
--- NOTE | 2024-11-25 11:25 | PD.ORTHCLVIS ---
Vital signs 11/25/24 11:25 Height 1.7 m Height Method Stated Weight 69.91 kg Weight Measurement Method Standing Scale BMI 24.2 BP 103/65 Blood Pressure Source Automatic Cuff Blood Pressure Location Left Upper Arm Position Sitting Respiration 19 Pulse 76 Pulse Source Monitor Temp 98.2 F Temp Source Temporal Artery Scan Pulse Oximetry (%) 94 L Oxygen Delivery Method Room Air Med/Allergies Allergies & Medications Allergies morphine Allergy (Intermediate, Verified 11/25/24 11:25) Hives doxycycline Allergy (Verified 11/25/24 11:25) Medication Reconciliation lisinopril 10 mg tablet 10 mg PO QDAY 12/09/23 [History Confirmed 11/25/24] prednisone 5 mg tablet 5 mg PO QDAY 12/09/23 [History Confirmed 11/25/24] bee pollen 550 mg capsule 550 mg PO DAILY 10/09/24 [History Confirmed 11/25/24] calcium 600 mg (as carbonate)-vitamin D3 5 mcg (200 unit) tablet (Calcium 600 + D(3)) 1 tab PO QDAY 10/09/24 [History Confirmed 11/25/24] coenzyme Q10 30 mg capsule (Co Q-10) 30 mg PO QDAY 10/09/24 [History Confirmed 11/25/24] garlic 5,000 mcg tablet 5 mg PO QDAY 10/09/24 [History Confirmed 11/25/24] hydrocodone 5 mg-acetaminophen 325 mg tablet 1 tab PO Q12H PRN pain 10/09/24 [History Confirmed 11/25/24] ibuprofen 400 mg tablet (IBU) 400 mg PO Q8H PRN pain 10/09/24 [History Confirmed 11/25/24] acetaminophen 500 mg tablet (Acetaminophen Extra Strength) 1,000 mg (2 x 500 mg) PO Q6H PRN pain #90 tabs 10/13/24 [Rx Confirmed 11/25/24] aspirin 81 mg tablet,delayed release 81 mg PO BID #60 tabs 10/13/24 [Rx Confirmed 11/25/24] cefadroxil 500 mg capsule 500 mg PO BID #14 caps 10/13/24 [Rx Confirmed 11/25/24] gabapentin 300 mg capsule 300 mg PO .qhs #30 caps 10/13/24 [Rx Confirmed 11/25/24] oxycodone 5 mg tablet 5 mg PO Q6H PRN pain #28 tabs 10/13/24 [Rx Confirmed 11/25/24] sennosides 8.6 mg-docusate sodium 50 mg tablet (Senna-S) 1 tab-cap PO QDAY #30 tabs 10/13/24 [Rx Confirmed 11/25/24] Exam Exam Patient is in no acute distress and is cooperative with the examination today. Breathing is nonlabored. In no respiratory distress. Bilateral extremities were evaluated and demonstrates sensation intact to light touch. Palpable pedal pulses are present. No significant edema is present. Bilateral hips were examined. The patient has no pain with log roll of the hips. Internal rotation to 30 degrees and external rotation to 30 degrees is painless. Negative FADIR. The left knee was examined. The left knee is in varus alignment. Range of motion from 0-115 degrees. Knee is stable to varus and valgus as well as AP translation with <5mm. Patient has a negative McMurrays. There is no pain with patellofemoral compression and no crepitus noted. The knee is tender to palpation medially and laterally Right knee incision is clean dry intact. Range of motion 0-100 Assessment and Plan Problem List (1) Ankylosing spondylitis: Status: Acute (2) Degenerative arthritis of knee, bilateral: Status: Acute Plan: Patient is a pleasant 78-year-old male with bilateral knee arthritis. He is status post total knee replacement and is doing well on the right. He will continue with physical therapy and we will see him in about 6 weeks Advanced Care Planning Discussion Advance care planning discussed with:: patient Office Procedures GNS Level of Care Nursing/Assessment Patient Status: Established Patient Nursing Assessment/Reassesment: Medication Reconciliation, Update PMH in EMR and Vital Signs Coordination of Care: Complex Care and Chronic Disease 1-5, Education Complex Pt/Fam, Consent,records obtained, informed consent, Results/Orders obtained and Staff clarify orders Established Patient Charge Established Patient Point Assignment: 95 Established Patient Point Charge: EP Level 3 (80-115) MA Intake Visit Data Collection New Patient or Established: Established Patient (seen at [facility] within 3 years) Reason for Visit:: 6 WEEK POST OP Seen by Clinical Staff ONLY (RN/MA): No PCP or OBGYN visit in last 3 months: Yes Hx Now: No Do You Feel Safe at Home: Yes Authorities Contacted: N/A Questionairres Past Medical History Past Medical History Have you ever been diagnosed with any of the following: Neurological Problems Seizures: No Cardiology Problems Congestive Heart Failure: No Hypertension: Yes Respiratory Problems Chronic Obstructive Pulmonary Disease (COPD): No Smoking: No Smoking Exposure: No Stomache/Intestinal Problems Hepatitis: No Diverticulitis: Yes Hiatal Hernia: Yes Genital/Urinary Problems Renal Disease: No Prostate Cancer: Yes Musculoskeletal Problems Arthritis: Yes Endocrine Problems Diabetes Mellitus Type 1: No Diabetes Mellitus Type 2: No Other Problems Hospitalization: Yes (hernia surgery) Shingles: Yes Blood Transfusions: No Blood Transfusion Reaction: No Anesthesia Reactions: No Chicken Pox: Yes Measles: Yes Mumps: Yes Cancer: Yes Surgical History Total Knee Replacement: Yes (RIGHT 2024) Subjective Visit Visit for: follow up visit Immunization / Flu Flu Vaccine in the Last 12 Months: No Flu Vaccine Exclusion Criteria: No Exclusion Criteria History of Present Illness Chief complaint: Bilateral knee pain Abraham is a pleasant 78-year-old male with bilateral knee pain and bilateral knee arthritis. He has a history of ankylosing spondylitis. He is status post right total knee replacement and is doing well Pain Pain level (0-10): 4 Pain duration: WTIH MOVEMENT Pain location: inside (medial) and anterior Pain quality: aching Pain timing: increases with activity Associated signs & symptoms: none Ambulatory data Ambulatory device: cane Treatments Number of previous injections: 1 Improvement with previous injections: No Improvement with PT: No Improvement with NSAIDS: no Review of Systems Review of Systems: All systems negative unless otherwise noted in HPI.
== END 2024-11-25 11:31 | disposition home or self-care (01) ==
LOC: HODSRG 10:46
PROVIDERS: PCP Family Medicine; Referring Provider Family Medicine; Supervising Provider Orthopaedic Surgery Adult Reconstructive Orthopaedic Surgery; Visit Provider Orthopaedic Surgery Adult Reconstructive Orthopaedic Surgery
DX: M45.9 Ankylosing spondylitis of unspecified sites in spine (principal); M17.0 Bilateral primary osteoarthritis of knee; Z96.651 Presence of right artificial knee joint; I10 Essential (primary) hypertension
CPT/HCPCS: 99213; G0463

== ENCOUNTER 2024-11-25 13:29 | Outpatient (RCR) | payer MEDICARE, BC, SELFPAY ==
--- NOTE | 2024-11-25 18:34 | PT.ODAYNRPT ---
PT Outpatient Daily Note OP Daily Note Outpatient Physical Therapy Treatment Date: 11/25/24 Visit Reasons: R TKA Subjective: Same as time of evaluation Objective: See F/S for therex MT: PROM into extension x3' Assessment: Improved PROM into extension after Rx today Plan: Continue per POC Length of Time (minutes) of Treatment: 30 Minutes Procedure Charges Therapeutic Exercise 30 minutes: Yes
== END 2024-12-25 23:59 | disposition home or self-care (01) ==
LOC: CPTX 13:29
PROVIDERS: PCP Orthopaedic Surgery Adult Reconstructive Orthopaedic Surgery; Referring Provider Orthopaedic Surgery Adult Reconstructive Orthopaedic Surgery; Visit Provider Orthopaedic Surgery Adult Reconstructive Orthopaedic Surgery
DX: M25.561 Pain in right knee (principal); Z96.651 Presence of right artificial knee joint; I10 Essential (primary) hypertension
CPT/HCPCS: 97110

== ENCOUNTER → 2024-12-18 | Outpatient (CLI) | payer MEDICARE, BC, SELFPAY ==
[2024-12-18 08:56] LABS: Basophils # (Auto) 0.1 Thou/mm3 (0.0-0.2); Basophils % (Auto) 1 % (0-2.5); Eosinophils # (Auto) 0.2 Thou/mm3 (0.0-0.5); Eosinophils % (Auto) 2 % (0-10); Hematocrit 39.4 % (41.0-53.0); Hemoglobin 12.9 g/dL (13.5-16.0); Immature Granulocytes Auto 0.12 Thou/mm3 (0.00-0.00); Lymphocytes # (Auto) 2.9 Thou/mm3 (1.0-4.8); Lymphocytes % (Auto) 24 % (10-50); Mean Corpuscular HGB Conc 32.7 g/dl (31.0-37.0); Mean Corpuscular Hemoglobin 29.6 pg (25.0-35.0); Mean Corpuscular Volume 90 fL (80-100); Monocytes # (Auto) 1.1 Thou/mm3 (0.0-0.8); Monocytes % (Auto) 9 % (0-12); Neutrophils # (Auto) 7.6 Thou/mm3 (1.8-7.7); Neutrophils % (Auto) 63 % (37-80); Nucleated Red Blood Cell # 0.00 Thou/mm3 (0.00-0.00); Nucleated Red Blood Cell % 0 /100 WBC (0); Platelet Count 368 Thou/mm3 (140-440); RDW Standard Deviation 48.6 fL (35.1-43.9); Red Blood Count 4.36 Miln/mm3 (4.50-5.90); White Blood Count 11.9 Thou/mm3 (3.8-10.6)
[2024-12-18 09:02] LABS: Glucose Estimated Average 123 mg/dL (80-131); Hemoglobin A1C 5.9 % Hgb (4.8-6.0)
[2024-12-18 09:10] LABS: Iron 45 mcg/dL (65-175); Prostate Specific Antigen < 0.10 ng/mL (0-4.00); Total Iron Binding Capacity 291 mcg/dL (250-425)
[2024-12-18 09:15] LABS: Sed Rate (ESR) 13 mm/hr (0-20)
[2024-12-18 09:28] LABS: Alanine Aminotransferase 11 U/L (10-49); Albumin, Serum 4.3 gm/dL (3.4-4.8); Albumin/Globulin Ratio 1.5 (1.2-2.2); Alkaline Phosphatase 56 U/L (46-116); Anion Gap 10 (7-16); Aspartate Amino Transferase 20 U/L (0-34); BUN/Creatinine Ratio 19 Ratio (12-20); Bilirubin,Total 0.3 mg/dL (0.3-1.2); Blood Urea Nitrogen 21 mg/dL (9-23); C-Reactive Protein 1.7 mg/dL (0.0-0.9); Calcium 10.0 mg/dL (8.3-10.6); Calcium (Corrected) 10.0 mg/dL (8.5-10.1); Carbon Dioxide 27.0 mMol/L (20.0-31.0); Cardiac Risk Estimate 3.8 RATIO (4.0-6.7); Chloride 104 mMol/L (98-107); Cholesterol 208 mg/dL (132-200); Creatinine (Component) 1.1 mg/dL (0.6-1.3); Globulin 2.8 gm/dL (2.3-3.5); Glucose 94 mg/dL (74-106); HDL Cholesterol 55 mg/dL (40-60); LDL Cholesterol,Calculated 127 mg/dL (0-130); Osmolality,Calculated 284 (275-295); Potassium 4.6 mMol/L (3.4-5.1); Sodium 141 mMol/L (136-145); Total Protein 7.1 gm/dL (5.7-8.2); Triglycerides 128 mg/dL (30-150); eGFR > 60 See Note
== END | disposition home or self-care (01) ==
PROVIDERS: PCP Family Medicine; Referring Provider Nurse Practitioner Family; Visit Provider Nurse Practitioner Family
DX: E78.2 Mixed hyperlipidemia (principal); R73.03 Prediabetes; Z85.46 Personal history of malignant neoplasm of prostate; M45.0 Ankylosing spondylitis of multiple sites in spine; M85.88 Other specified disorders of bone density and structure, other site
CPT/HCPCS: 36415; 80053; 80061; 83036; 83540; 83550; 84153; 85025; 85652; 86140

== ENCOUNTER 2025-01-06 09:52 | Outpatient (AMB) | payer MEDICARE, BC, SELFPAY ==
[2025-01-06 09:57] VITALS: BP 113/68; PULSE 85; RESP 18; TEMP 36.6; O2SAT 98; BMI 23.4
--- NOTE | 2025-01-06 09:57 | PD.ORTHCLVIS ---
Vital signs 01/06/25 09:57 Height 1.7 m Height Method Stated Weight 67.727 kg Weight Measurement Method Standing Scale BMI 23.4 BP 113/68 Blood Pressure Source Automatic Cuff Blood Pressure Location Left Upper Arm Position Sitting Respiration 18 Pulse 85 Pulse Source Monitor Temp 97.9 F Temp Source Temporal Artery Scan Pulse Oximetry (%) 98 Oxygen Delivery Method Room Air Med/Allergies Allergies & Medications Allergies morphine Allergy (Intermediate, Verified 01/06/25 09:58) Hives doxycycline Allergy (Verified 01/06/25 09:58) Medication Reconciliation lisinopril 10 mg tablet 10 mg PO QDAY 12/09/23 [History Confirmed 01/06/25] prednisone 5 mg tablet 5 mg PO QDAY 12/09/23 [History Confirmed 01/06/25] bee pollen 550 mg capsule 550 mg PO DAILY 10/09/24 [History Confirmed 01/06/25] calcium 600 mg (as carbonate)-vitamin D3 5 mcg (200 unit) tablet (Calcium 600 + D(3)) 1 tab PO QDAY 10/09/24 [History Confirmed 01/06/25] coenzyme Q10 30 mg capsule (Co Q-10) 30 mg PO QDAY 10/09/24 [History Confirmed 01/06/25] garlic 5,000 mcg tablet 5 mg PO QDAY 10/09/24 [History Confirmed 01/06/25] hydrocodone 5 mg-acetaminophen 325 mg tablet 1 tab PO Q12H PRN pain 10/09/24 [History Confirmed 01/06/25] ibuprofen 400 mg tablet (IBU) 400 mg PO Q8H PRN pain 10/09/24 [History Confirmed 01/06/25] acetaminophen 500 mg tablet (Acetaminophen Extra Strength) 1,000 mg (2 x 500 mg) PO Q6H PRN pain #90 tabs 10/13/24 [Rx Confirmed 01/06/25] cefadroxil 500 mg capsule 500 mg PO BID #14 caps 10/13/24 [Rx Confirmed 01/06/25] gabapentin 300 mg capsule 300 mg PO .qhs #30 caps 10/13/24 [Rx Confirmed 01/06/25] oxycodone 5 mg tablet 5 mg PO Q6H PRN pain #28 tabs 10/13/24 [Rx Confirmed 01/06/25] sennosides 8.6 mg-docusate sodium 50 mg tablet (Senna-S) 1 tab-cap PO QDAY #30 tabs 10/13/24 [Rx Confirmed 01/06/25] Exam Exam Patient is in no acute distress and is cooperative with the examination today. Breathing is nonlabored. In no respiratory distress. Bilateral extremities were evaluated and demonstrates sensation intact to light touch. Palpable pedal pulses are present. No significant edema is present. Bilateral hips were examined. The patient has no pain with log roll of the hips. Internal rotation to 30 degrees and external rotation to 30 degrees is painless. Negative FADIR. The left knee was examined. The left knee is in varus alignment. Range of motion from 0-115 degrees. Knee is stable to varus and valgus as well as AP translation with <5mm. Patient has a negative McMurrays. There is no pain with patellofemoral compression and no crepitus noted. The knee is tender to palpation medially and laterally Right knee incision is clean dry intact. Range of motion 0-100 Assessment and Plan Problem List (1) Ankylosing spondylitis: Status: Acute (2) Degenerative arthritis of knee, bilateral: Status: Acute Plan: Patient is a pleasant 78-year-old male with bilateral knee arthritis. He is status post total knee replacement and is doing well on the right. H Plan We will see the patient back in approximately 3 months Advanced Care Planning Discussion Advance care planning discussed with:: patient Office Procedures GNS Level of Care Nursing/Assessment Patient Status: Established Patient Nursing Assessment/Reassesment: Medication Reconciliation, Update PMH in EMR and Vital Signs Coordination of Care: Complex Care and Chronic Disease 1-5, Education Complex Pt/Fam, Consent,records obtained, informed consent, Results/Orders obtained and Staff clarify orders Established Patient Charge Established Patient Point Assignment: 95 Established Patient Point Charge: EP Level 3 (80-115) MA Intake Visit Data Collection New Patient or Established: Established Patient (seen at [facility] within 3 years) Reason for Visit:: FOLLOW UP Seen by Clinical Staff ONLY (RN/MA): No PCP or OBGYN visit in last 3 months: Yes Hx Now: No Do You Feel Safe at Home: Yes Authorities Contacted: N/A Questionairres Past Medical History Past Medical History Have you ever been diagnosed with any of the following: Neurological Problems Seizures: No Cardiology Problems Congestive Heart Failure: No Hypertension: Yes Respiratory Problems Chronic Obstructive Pulmonary Disease (COPD): No Smoking: No Smoking Exposure: No Stomache/Intestinal Problems Hepatitis: No Diverticulitis: Yes Hiatal Hernia: Yes Genital/Urinary Problems Renal Disease: No Prostate Cancer: Yes Musculoskeletal Problems Arthritis: Yes Endocrine Problems Diabetes Mellitus Type 1: No Diabetes Mellitus Type 2: No Other Problems Hospitalization: Yes (hernia surgery) Shingles: Yes Blood Transfusions: No Blood Transfusion Reaction: No Anesthesia Reactions: No Chicken Pox: Yes Measles: Yes Mumps: Yes Cancer: Yes Surgical History Total Knee Replacement: Yes (RIGHT 2024) Subjective Visit Visit for: follow up visit Immunization / Flu Flu Vaccine in the Last 12 Months: No Flu Vaccine Exclusion Criteria: No Exclusion Criteria History of Present Illness Chief complaint: Bilateral knee pain Abraham is a pleasant 78-year-old male with bilateral knee pain and bilateral knee arthritis. He has a history of ankylosing spondylitis. He is status post right total knee replacement and is doing well. He reports the left knee pain hurts more Pain Pain level (0-10): 4 Pain duration: WTIH MOVEMENT Pain location: inside (medial) and anterior Pain quality: aching Pain timing: increases with activity Associated signs & symptoms: none Ambulatory data Ambulatory device: cane Treatments Number of previous injections: 1 Improvement with previous injections: No Improvement with PT: No Improvement with NSAIDS: no Review of Systems Review of Systems: All systems negative unless otherwise noted in HPI.
== END 2025-01-06 10:02 | disposition home or self-care (01) ==
LOC: HODSRG 09:52
PROVIDERS: PCP Family Medicine; Referring Provider Family Medicine; Supervising Provider Orthopaedic Surgery Adult Reconstructive Orthopaedic Surgery; Visit Provider Orthopaedic Surgery Adult Reconstructive Orthopaedic Surgery
DX: M45.9 Ankylosing spondylitis of unspecified sites in spine (principal); M17.0 Bilateral primary osteoarthritis of knee; Z96.651 Presence of right artificial knee joint; M25.562 Pain in left knee; M25.561 Pain in right knee; I10 Essential (primary) hypertension
CPT/HCPCS: 99213; G0463

== ENCOUNTER 2025-04-09 09:35 | Outpatient (AMB) | payer MEDICARE, BC, SELFPAY ==
--- NOTE | 2025-04-09 09:52 | PD.ORTHCLVIS ---
Vital signs 04/09/25 09:53 Height 1.7 m Height Method Stated Weight 71.299 kg Weight Measurement Method Standing Scale BMI 24.6 BP 128/72 Blood Pressure Source Automatic Cuff Blood Pressure Location Left Upper Arm Position Sitting Respiration 20 Pulse 73 Pulse Source Monitor Temp 98.1 F Temp Source Temporal Artery Scan Pulse Oximetry (%) 97 Oxygen Delivery Method Room Air Med/Allergies Allergies & Medications Allergies morphine Allergy (Intermediate, Verified 04/09/25 09:54) Hives doxycycline Allergy (Verified 04/09/25 09:54) Medication Reconciliation lisinopril 10 mg tablet 10 mg PO QDAY 12/09/23 [History Confirmed 04/09/25] prednisone 5 mg tablet 5 mg PO QDAY 12/09/23 [History Confirmed 04/09/25] bee pollen 550 mg capsule 550 mg PO DAILY 10/09/24 [History Confirmed 04/09/25] calcium 600 mg (as carbonate)-vitamin D3 5 mcg (200 unit) tablet (Calcium 600 + D(3)) 1 tab PO QDAY 10/09/24 [History Confirmed 04/09/25] coenzyme Q10 30 mg capsule (Co Q-10) 30 mg PO QDAY 10/09/24 [History Confirmed 04/09/25] garlic 5,000 mcg tablet 5 mg PO QDAY 10/09/24 [History Confirmed 04/09/25] hydrocodone 5 mg-acetaminophen 325 mg tablet 1 tab PO Q12H PRN pain 10/09/24 [History Confirmed 04/09/25] ibuprofen 400 mg tablet (IBU) 400 mg PO Q8H PRN pain 10/09/24 [History Confirmed 04/09/25] acetaminophen 500 mg tablet (Acetaminophen Extra Strength) 1,000 mg (2 x 500 mg) PO Q6H PRN pain #90 tabs 10/13/24 [Rx Confirmed 04/09/25] cefadroxil 500 mg capsule 500 mg PO BID #14 caps 10/13/24 [Rx Confirmed 04/09/25] gabapentin 300 mg capsule 300 mg PO .qhs #30 caps 10/13/24 [Rx Confirmed 04/09/25] oxycodone 5 mg tablet 5 mg PO Q6H PRN pain #28 tabs 10/13/24 [Rx Confirmed 04/09/25] sennosides 8.6 mg-docusate sodium 50 mg tablet (Senna-S) 1 tab-cap PO QDAY #30 tabs 10/13/24 [Rx Confirmed 04/09/25] Exam Exam Patient is in no acute distress and is cooperative with the examination today. Breathing is nonlabored. In no respiratory distress. Bilateral extremities were evaluated and demonstrates sensation intact to light touch. Palpable pedal pulses are present. No significant edema is present. Bilateral hips were examined. The patient has no pain with log roll of the hips. Internal rotation to 30 degrees and external rotation to 30 degrees is painless. Negative FADIR. The left knee was examined. The left knee is in varus alignment. Range of motion from 0-115 degrees. Knee is stable to varus and valgus as well as AP translation with <5mm. Patient has a negative McMurrays. There is no pain with patellofemoral compression and no crepitus noted. The knee is tender to palpation medially and laterally Right knee incision is clean dry intact. Range of motion 0-100 Assessment and Plan Problem List (1) Ankylosing spondylitis: Status: Acute (2) Degenerative arthritis of knee, bilateral: Status: Acute Plan: Patient is a pleasant 78-year-old male with bilateral knee arthritis. He is status post total knee replacement and is doing well on the right. Plan We will see the patient back in approximately 6 months Advanced Care Planning Discussion Advance care planning discussed with:: patient Office Procedures GNS Level of Care Nursing/Assessment Patient Status: Established Patient Nursing Assessment/Reassesment: Medication Reconciliation, Update PMH in EMR and Vital Signs Coordination of Care: Complex Care and Chronic Disease 1-5, Education Complex Pt/Fam, Consent,records obtained, informed consent, Results/Orders obtained and Staff clarify orders Established Patient Charge Established Patient Point Assignment: 95 Established Patient Point Charge: EP Level 3 (80-115) MA Intake Visit Data Collection New Patient or Established: Established Patient (seen at [facility] within 3 years) Reason for Visit:: 3MTH FOLLOW UP Seen by Clinical Staff ONLY (RN/MA): No PCP or OBGYN visit in last 3 months: Yes Hx Now: No Do You Feel Safe at Home: Yes Authorities Contacted: N/A Questionairres Past Medical History Past Medical History Have you ever been diagnosed with any of the following: Neurological Problems Seizures: No Cardiology Problems Congestive Heart Failure: No Hypertension: Yes Respiratory Problems Chronic Obstructive Pulmonary Disease (COPD): No Smoking: No Smoking Exposure: No Stomache/Intestinal Problems Hepatitis: No Diverticulitis: Yes Hiatal Hernia: Yes Genital/Urinary Problems Renal Disease: No Prostate Cancer: Yes Musculoskeletal Problems Arthritis: Yes Endocrine Problems Diabetes Mellitus Type 1: No Diabetes Mellitus Type 2: No Other Problems Hospitalization: Yes (hernia surgery) Shingles: Yes Blood Transfusions: No Blood Transfusion Reaction: No Anesthesia Reactions: No Chicken Pox: Yes Measles: Yes Mumps: Yes Cancer: Yes Surgical History Total Knee Replacement: Yes (RIGHT 2024) Subjective Visit Visit for: follow up visit Immunization / Flu Flu Vaccine in the Last 12 Months: No Flu Vaccine Exclusion Criteria: No Exclusion Criteria History of Present Illness Chief complaint: Bilateral knee pain Abraham is a pleasant 79-year-old male with bilateral knee pain and bilateral knee arthritis. He has a history of ankylosing spondylitis. He is status post right total knee replacement 6 months and is doing well. He reports the left knee pain hurts more and wants to get surgery on the left soon Pain Pain level (0-10): 4 Pain duration: WTIH MOVEMENT Pain location: inside (medial) and anterior Pain quality: aching Pain timing: increases with activity Associated signs & symptoms: none Ambulatory data Ambulatory device: cane Treatments Number of previous injections: 1 Improvement with previous injections: No Improvement with PT: No Improvement with NSAIDS: no Review of Systems Review of Systems: All systems negative unless otherwise noted in HPI.
[2025-04-09 09:53] VITALS: BP 128/72; PULSE 73; RESP 20; TEMP 36.7; O2SAT 97; BMI 24.6
== END 2025-04-09 10:06 | disposition home or self-care (01) ==
LOC: HODSRG 09:35
PROVIDERS: PCP Family Medicine; Referring Provider Family Medicine; Supervising Provider Orthopaedic Surgery Adult Reconstructive Orthopaedic Surgery; Visit Provider Orthopaedic Surgery Adult Reconstructive Orthopaedic Surgery
DX: M45.9 Ankylosing spondylitis of unspecified sites in spine (principal); M17.0 Bilateral primary osteoarthritis of knee
CPT/HCPCS: 99213; G0463

== ENCOUNTER → 2025-05-19 | Outpatient (CLI) | payer MEDICARE, BC, SELFPAY ==
--- NOTE | 2025-05-19 08:53 | XR_ITS ---
EXAMINATION: Bilateral knees 2 views Right lateral knee left lateral knee 2 views Bilateral [place] single view TECHNIQUE: Bilateral AP knees standing single view, bilateral PA knees standing single view flexion Standing right lateral knee left lateral knee 2 views Bilateral Axuni single view total 5 views Date and time: May 19, 2025, 0923 hours INDICATIONS: Right knee replacement September 2024 left knee pain 30 years. FINDINGS: Severe osteopenia Total right knee arthroplasty. Satisfactory alignment. No loosening of the prosthetic components Severe left knee tricompartment osteoarthritis,. Severe tricompartment joint narrowing No fracture IMPRESSION: Severe left knee tricompartment osteoarthritis
== END | disposition home or self-care (01) ==
LOC: CDIM 08:38
PROVIDERS: Referring Provider Orthopaedic Surgery Adult Reconstructive Orthopaedic Surgery; Visit Provider Orthopaedic Surgery Adult Reconstructive Orthopaedic Surgery
DX: M17.0 Bilateral primary osteoarthritis of knee (principal)
CPT/HCPCS: 73564